=== PATIENT | female | born 1975 | race Caucasian/White ===

== ENCOUNTER → 2021-03-12 14:49 | Outpatient (BNVA) | payer OTHER, SELFPAY | PROVIDERS: PCP Internal Medicine; Visit Provider Internal Medicine Pulmonary Disease ==

== ENCOUNTER 2021-03-29 13:27 | Outpatient (REF) | payer OTHER, SELFPAY ==
--- NOTE | ~2021-03-29 | XR_ITS ---
EXAMINATION: XR CHEST CLINICAL INFORMATION: Dyspnea, unspecified. COMPARISON: None TECHNIQUE: The chest is imaged in frontal and 2 lateral views for a total of 3 views. FINDINGS: The lungs are clear. The vascularity is normal. There is no pneumothorax, airspace opacity, pleural reaction, or effusion. The heart is normal in size. The hilar and mediastinal contours are normal. No visible acute bony abnormality. XR/XR chest 2V IMPRESSION: Unremarkable examination.
--- NOTE | 2021-03-29 17:14 | PFT_ITS ---
Forced vital capacity FEV1, IHG54-60, and MVV are normal. Post bronchodilator therapy, no changes noted. Total lung capacity and residual volume are normal. Diffusion capacity normal. CONCLUSION: Normal pulmonary function test. No evidence of obstructive or restrictive pulmonary disorder. MD MEET Mobley/MODL / [id number]
== END 2021-03-29 13:28 | disposition home or self-care (01) ==
LOC: HO.RESP 13:27
PROVIDERS: PCP Internal Medicine; Visit Provider Internal Medicine Pulmonary Disease
DX: R06.00 Dyspnea, unspecified (principal)
CPT/HCPCS: 71046; 94060; 94727; 94729

== ENCOUNTER → 2021-07-02 14:51 | Outpatient (BNVA) | payer OTHER, SELFPAY | PROVIDERS: PCP Internal Medicine; Visit Provider Internal Medicine Pulmonary Disease ==